=== PATIENT | female | born 1945 | race African-American/Black ===

== ENCOUNTER 2017-05-07 12:47 | Emergency (ER) | payer OTHER ==
[~2017-05-07] VITALS: Ht 180.3 cm; Wt 104.0 kg
[2017-05-07] MEDS ORDERED: LOSARTAN POTASSIUM 50 MG TABLET PO ONE (14:00)
[2017-05-07] MEDS ORDERED: KETOROLAC 60MG/2ML VIAL IM ONE (14:00)
[2017-05-07 14:34] VITALS: BP 156/82
== END 2017-05-07 14:35 | disposition home or self-care (01) ==
LOC: ER 14:23
DX: I10 Essential (primary) hypertension (principal); E11.9 Type 2 diabetes mellitus without complications; Z48.00 Encounter for change or removal of nonsurgical wound dressing; Z90.710 Acquired absence of both cervix and uterus; Z95.0 Presence of cardiac pacemaker; Z88.2 Allergy status to sulfonamides; Z88.8 Allergy status to other drugs, medicaments and biological substances
CPT/HCPCS: 99283

== ENCOUNTER 2020-02-18 11:47 | Emergency (ER) | payer SELFPAY ==
[~2020-02-18] VITALS: Ht 177.8 cm; Wt 92.5 kg
[2020-02-18 15:47] LABS: CHLORIDE 107 mEq/L (98-107)
[2020-02-18 15:49] LABS: BASOPHILS % 0.4 % (0.0-2.0); EOSINOPHILS % 1.6 % (0.0-5.0); HEMATOCRIT. 38.2 % (36.0-48.0); HEMOGLOBIN. 12.2 g/dL (12.0-16.0); LYMPHOCYTES % 18.1 % (20.0-50.0); MEAN CORPUSCULAR HEMOGLOBIN 26.3 pg (28.0-32.0); MEAN CORPUSCULAR VOLUME 82.3 fL (81.0-99.0); MEAN PLATELET VOLUME 9.8 fl (7.4-10.4); MONOCYTES % 9.5 % (2.0-8.0); NEUTROPHILS % 70.4 % (40.0-76.0); PLATELET 162 x1000/uL (130-400); RED BLOOD CELL COUNT 4.64 mill/uL (4.2-5.4); RED CELL DISTRIBUTION WIDTH 14.7 % (11.6-14.6)
[2020-02-18] MEDS ORDERED: ACETAMINOPHEN 325MG TABLET PO ONE (16:30)
[2020-02-18 16:36] VITALS: BP 136/54
== END 2020-02-18 16:46 | disposition home or self-care (01) ==
LOC: ER 11:47
DX: M79.602 Pain in left arm (principal); M19.90 Unspecified osteoarthritis, unspecified site; I10 Essential (primary) hypertension; I48.91 Unspecified atrial fibrillation; Z79.01 Long term (current) use of anticoagulants; Z95.0 Presence of cardiac pacemaker
CPT/HCPCS: 36415; 80053; 84484; 85025; 93005; 99284

== ENCOUNTER 2021-09-07 04:17 | Inpatient (IN) | payer OTHER ==
[~2021-09-07] VITALS: Ht 172.7 cm; Wt 84.5 kg
[2021-09-07] VITALS (7 sets, daily range): BP systolic 126–158; BP diastolic 67–82
[2021-09-07 05:16] LABS: BASOPHILS % 0.4 % (0.0-2.0); EOSINOPHILS % 0.6 % (0.0-5.0); HEMATOCRIT. 33.8 % (36.0-48.0); LYMPHOCYTES % 15.2 % (20.0-50.0); MEAN CORPUSCULAR HEMOGLOBIN 27.6 pg (28.0-32.0); MEAN CORPUSCULAR VOLUME 84.9 fL (81.0-99.0); MEAN PLATELET VOLUME 9.2 fl (7.4-10.4); MONOCYTES % 10.3 % (2.0-8.0); NEUTROPHILS % 73.5 % (40.0-76.0); PLATELET 183 x1000/uL (130-400); RED BLOOD CELL COUNT 3.99 mill/uL (4.2-5.4); RED CELL DISTRIBUTION WIDTH 13.5 % (11.6-14.6)
[2021-09-07 05:33] LABS: INR 1.1; PROTHROMBIN TIME 12.2 sec (9.6-11.0)
[2021-09-07 05:40] LABS: CHLORIDE 107 mEq/L (98-107)
[2021-09-07 06:05] LABS: CLARITY URINE CLEAR (CLEAR); COLOR URINE YELLOW (YELLOW); KETONES URINE NEGATIVE (NEGATIVE); LEUKOCYTE ESTERASE URINE 1+ (NEGATIVE); NITRITE URINE NEGATIVE (NEGATIVE); OCCULT BLOOD URINE NEGATIVE (NEGATIVE); PH URINE 7.5 (4.5-8.0); PROTEIN URINE NEGATIVE (NEGATIVE); SPECIFIC GRAVITY URINE 1.016 (1.005-1.030); UROBILINOGEN URINE 0.2 E.U./dL (0.2-1.0)
[2021-09-07 06:36] LABS: LDL CHOLESTEROL 57 mg/dL (5-100)
[2021-09-07] MEDS ORDERED: IOHEXOL-350 100 ML BOTTLE ONE (06:38)
[2021-09-07] MEDS: ASPIRIN 81MG EC TABLET PO SCH ×2 (09:00→13:31)
[2021-09-07] MEDS ORDERED: ENOXAPARIN 40MG/0.4ML SYR SUBCUT SCH (09:30)
[2021-09-07] MEDS ORDERED: CLONIDINE 0.1MG TABLET PO PRN (09:30)
[2021-09-07] MEDS ORDERED: MAGNESIUM/ALUMINUM HYDROXIDE/SIMETHICONE 30ML UDC PO PRN (09:30)
[2021-09-07] MEDS ORDERED: ONDANSETRON HCL 4MG/2ML INJ IV PRN (09:30)
[2021-09-07] MEDS ORDERED: DOCUSATE SODIUM 100MG CAPSULE PO PRN (09:30)
[2021-09-07] MEDS ORDERED: GUAIFENESIN 200MG/10ML SUGAR FREE UDC PO PRN (09:30)
[2021-09-07] MEDS ORDERED: ACETAMINOPHEN 325MG TABLET PO PRN (09:30)
[2021-09-07] MEDS ORDERED: OXYB5SYR2 PO (11:42)
[2021-09-07] MEDS ORDERED: LOVA40TA73 PO (11:42)
[2021-09-07] MEDS ORDERED: ALEN70TA79 PO (11:42)
[2021-09-07] MEDS ORDERED: CARV6.2548 PO (11:42)
[2021-09-07] MEDS ORDERED: BIMA2.5D4 EACHEYE (11:42)
[2021-09-07] MEDS ORDERED: BIMA2.5D4 OP (11:42)
[2021-09-07] MEDS ORDERED: DOCU250C69 PO (11:42)
[2021-09-07] MEDS ORDERED: HYDR25TA PO (11:42)
[2021-09-07] MEDS ORDERED: FOLI-43 PO (11:42)
[2021-09-07] MEDS ORDERED: CLOT113C TP (11:42)
[2021-09-07] MEDS ORDERED: POTA-9 PO (11:42)
[2021-09-07] MEDS ORDERED: CHOL100046 (11:42)
[2021-09-07] MEDS ORDERED: XAR15 GT (11:42)
[2021-09-07] MEDS ORDERED: OMEP40CA20 PO (11:42)
[2021-09-07] MEDS ORDERED: NETA2.5D OP (11:42)
[2021-09-07] MEDS ORDERED: KETO15CR2 TP (11:42)
[2021-09-07] MEDS: CARVEDILOL 3.125 MG TABLET PO SCH ×2 (13:34→21:51)
[2021-09-07] MEDS: RIVAROXABAN 15 MG TABLET PO SCH (17:55)
[2021-09-08] VITALS (18 sets, daily range): BP systolic 128–166; BP diastolic 59–105
[2021-09-08 05:29] LABS: BASOPHILS % 0.3 % (0.0-2.0); EOSINOPHILS % 1.9 % (0.0-5.0); HEMATOCRIT. 34.5 % (36.0-48.0); HEMOGLOBIN. 11.1 g/dL (12.0-16.0); LYMPHOCYTES % 20.2 % (20.0-50.0); MEAN CORPUSCULAR HEMOGLOBIN 27.4 pg (28.0-32.0); MEAN CORPUSCULAR VOLUME 85.2 fL (81.0-99.0); MEAN PLATELET VOLUME 9.2 fl (7.4-10.4); MONOCYTES % 11.2 % (2.0-8.0); NEUTROPHILS % 66.4 % (40.0-76.0); PLATELET 170 x1000/uL (130-400); RED BLOOD CELL COUNT 4.05 mill/uL (4.2-5.4); RED CELL DISTRIBUTION WIDTH 13.5 % (11.6-14.6)
[2021-09-08 06:08] LABS: CHLORIDE 107 mEq/L (98-107)
[2021-09-08 06:21] LABS: LDL CHOLESTEROL 56 mg/dL (5-100)
[2021-09-08 06:23] LABS: HDL CHOLESTEROL 53 mg/dL (40-59)
[2021-09-08] MEDS: CARVEDILOL 3.125 MG TABLET PO SCH (09:00)
[2021-09-08] MEDS ORDERED: POTASSIUM CHLORIDE 20MEQ TABLET SR PO NR (14:30)
[2021-09-08] MEDS: RIVAROXABAN 15 MG TABLET PO SCH (17:42)
== END 2021-09-08 19:30 | disposition home or self-care (01) | DRG 552 ==
LOC: ER 04:17 → 5EST 06:07 → ENRESERV 08:45
PROVIDERS: ADMIT Internal Medicine; ATTEND Internal Medicine
PROC: 4A10X4Z Monitoring of Central Nervous Electrical Activity, External Approach (ICD-10-PCS; principal; 2021-09-08)
DX: M47.812 Spondylosis without myelopathy or radiculopathy, cervical region (principal); D68.59 Other primary thrombophilia; I42.9 Cardiomyopathy, unspecified; R53.1 Weakness; D64.9 Anemia, unspecified; E78.5 Hyperlipidemia, unspecified; I11.0 Hypertensive heart disease with heart failure; I25.10 Atherosclerotic heart disease of native coronary artery without angina pectoris; I48.91 Unspecified atrial fibrillation; I50.9 Heart failure, unspecified; M06.9 Rheumatoid arthritis, unspecified; M32.9 Systemic lupus erythematosus, unspecified; M10.9 Gout, unspecified; M19.90 Unspecified osteoarthritis, unspecified site; M79.7 Fibromyalgia; Z79.01 Long term (current) use of anticoagulants; Z79.899 Other long term (current) drug therapy; Z88.2 Allergy status to sulfonamides; Z88.8 Allergy status to other drugs, medicaments and biological substances; Z95.810 Presence of automatic (implantable) cardiac defibrillator
CPT/HCPCS: 36415; 70496; 70498; 71045; 80053; 80061; 81003; 82962; 83721; 84484; 85025; 93005; 93306; 93308; 93970; 95816; 97162; 99291; J1650; Q9967

== ENCOUNTER 2022-11-01 12:48 | Emergency (ER) | payer MEDICARE, OTHER ==
[~2022-11-01] VITALS: Ht 177.8 cm; Wt 71.0 kg
[~2022-11-01 12:48] MED LIST: ALEN70TA79 PO; BIMA2.5D4 EACHEYE; BIMA2.5D4 OP; CARV6.2548 PO; CHOL100046; CLOT113C TP; DOCU250C69 PO; FOLI-43 PO; HYDR25TA PO; KETO15CR2 TP; LOVA40TA73 PO; NETA2.5D OP; OMEP40CA20 PO; OXYB5SYR2 PO; POTA-202 PO; XAR15 GT
[2022-11-01 13:15] VITALS: BP 174/81
[2022-11-01] MEDS ORDERED: ACETAMINOPHEN 325MG TABLET PO STA (16:55)
[2022-11-01] MEDS ORDERED: ACET-2708 MT (16:56)
== END 2022-11-01 17:44 | disposition home or self-care (01) ==
LOC: ER 12:48
DX: M54.2 Cervicalgia (principal); I13.10 Hypertensive heart and chronic kidney disease without heart failure, with stage 1 through stage 4 chronic kidney disease, or unspecified chronic kidney disease; N18.9 Chronic kidney disease, unspecified; I48.91 Unspecified atrial fibrillation; Z79.01 Long term (current) use of anticoagulants; Z79.899 Other long term (current) drug therapy; I25.10 Atherosclerotic heart disease of native coronary artery without angina pectoris
CPT/HCPCS: 99282